=== PATIENT | female | born 1990 | race Caucasian/White ===

== ENCOUNTER 2021-12-30 09:05 | Inpatient (IN) ==
[2021-12-30] MEDS ORDERED: OXYTOCIN 30 UNITS/500 ML BAG IV PRN ×3 (09:34→14:20)
[2021-12-30] MEDS ORDERED: LIDOCAINE 1% LOCAL 20 ML VIAL INFIL PRN (09:34)
[2021-12-30] MEDS ORDERED: LACTATED RINGER'S 1,000 ML IV PRN (09:34)
--- NOTE | 2021-12-30 09:39 | History & Physical Report ---
Date of Service December 30, 2021 Assessment & Plan (1) PROM (premature rupture of membranes): Plan: Patient is a 31 yo at 38+5 WGA presenting to labor and delivery d/t PROM. Blood type: O+, GBS neg, rubella immune Plan to monitor for timeable and regular contraction pattern to develop Will start oxytocin later if necessary Proceed with labor and vaginal delivery History of Present Illness Chief Complaint: PROM at 8am. Primary Care Provider: Bonifacio John Patient is a 31 yo female currently at 38+5WGA with an MIKI 01/08/2022 as determined by LMP who is here d/t her water breaking at 8 AM this morning. She recently underwent ECV on 12/26/2021 which was successful. Baby is still head down confirmed by US. Her has been uncomplicated Sporadic, non timeable contractions described as a strong cramp; movement present; positive fluid loss; denies bloody show External FHT and external uterine monitors used; category 1 tracing; normal FHT variability Had regular appointments with OB in [place] and here. Labs: Blood type: O+ Antibody screen: neg Hgb: 13.5 (12/26/2021) Hct: 41.5 (12/26/2021) WBC: 8.18 (12/26/2021) Plt: 370 (12/26/2021) Rubella: immune VDRL/RPR: neg Gonorrhea: neg Chlamydia: neg HIV: neg HbSAg: neg GBS: neg per patient Allergies Allergy/AdvReac Type Severity Reaction Status Date / Time No Known Allergies Allergy Verified 12/26/21 11:42 Home Medications Medication Instructions Recorded Confirmed Type escitalopram oxalate 10 mg tablet 10 mg PO DAILY 11/05/18 12/26/21 History (Lexapro) prenat.vits,sheela,wsv-lilw-jvbpy 1 tab PO DAILY 12/11/21 12/26/21 History Patient History Medical History (Updated 12/30/21 @ 10:12 by Fátima Hadley DO) Depression with anxiety Hypothyroid no longer on medication Surgical History S/P wisdom tooth extraction Family History Father Asthma Hypertension Mother Hypertension Hypothyroidism Depression Hypercholesteremia Grandfather (Paternal) Hypertension Hypercholesteremia Grandmother (Maternal) Depression Hypercholesteremia COPD (chronic obstructive pulmonary disease) Grandfather (Maternal) Alzheimer disease Grandmother (Paternal) Colorectal cancer Heart disease Denies family history of Ovarian cancer Breast cancer Social History Smoking Status: Never smoker Hx Alcohol Use: Yes Alcohol Intake Frequency Comment: 2-3 DAYS A WEEK Hx Substance Use: No Preferred Language: Azeri Churn Tender Required: No Beliefs That Will Affect Care: None marital status: marital status details: Gee Caruso (30) [phone] Current Living Situation: Spouse and Family Current Living Situation Comment: lives with spouse, son, dogs, bird current occupational status: employed current occupation: teacher [employer] Feels Safe at Home: No Is there a partner from a previous relationship who is making you feel unsafe now?: No Review of Systems Denies fever, chills, sweats. Denies SOB, difficulty breathing, chest pain, palpitations, and chest pressure. Denies breast pain. Denies dysuria. Denies headache or changes in vision. Physical Exam Physical Exam: General: Alert and oriented. No acute distress CV: Regular rate and rhythm. No murmurs. Respiratory: CTA bilaterally. No rhonchi, wheezes, or crackles. No increased work of breathing. Abdomen: Gravid; Soft, nontender upon palpation Pelvic: Dilated 3 cm; Effacement 75%; Station -[address] Douglass's exam Lower extremities: No LE edema. No deep calf pain. Terese's negative bilaterally. Supervising Physician Co-Signing Physician Notes Resident Physician Supervision Note: I was present with Dr. Hadley during the history and exam. I discussed the case with the resident and agree with the findings and plan as documented in the note. Any exceptions or clarifications are listed here: 31yo at term with prom. prior in [place]. transfer of care here in 3rd trimester. rh pos, ri, gbs neg. no labor pattern. discussed if none develops will need pitocin. fhts categ 1. couple agreeable to plan. cephalic by bedside u/s. Documented By: Betsy Douglass MD, FACOG Resident Activity Tracking Resident Involvement: Resident Care Provided Care Provided: OB Delivery
[2021-12-30 09:54] LABS: Hematocrit (blood only) 41.9 % (34.1-44.9); Mean Corpuscular Hemoglobin 28.6 pg (25.0-34.0); Mean Corpuscular Hgb Conc 33.4 g/dL (32.0-36.0); Mean Corpuscular Volume 85.5 fL (80.0-100.0); Platelet Count 368 K/uL (130-400); RDW Coefficient of Variation 15.5 % (11.5-14.5); RDW Standard Deviation 47.5 fL (36.4-46.3); White Blood Count 9.93 K/ul (4.8-10.8)
[2021-12-30] MEDS ORDERED: FLUARIX QUADRIVALENT 0.5 ML SYR IM ONE (10:33)
[2021-12-30 11:50] LABS: Albumin Globulin Ratio 1.2 (0.9-2); Albumin Level 3.7 gm/dl (3.4-5.0); BUN Creatinine Ratio 13.7 (10-20); Bilirubin,Total 0.3 mg/dl (0.2-1.0); Calcium 9.3 mg/dl (8.5-10.1); Creatinine Clr Calc Pharmacy 149.3 ml/min; Est GFR (African American) 127.2 ml/min; Est GFR (Non-African American) 109.7 ml/min; Globulin 3.1 gm/dl (2.5-4.0); Potassium 3.8 mmol/L (3.5-5.1); Total Protein 6.8 gm/dl (6.0-8.3)
[2021-12-30] MEDS ORDERED: ePHEDrine sulfate 50 MG/ML AMP ONE (12:43)
[2021-12-30] MEDS ORDERED: fentaNYL citrate 100 MCG/2 ML VIAL ONE (12:43)
[2021-12-30] MEDS ORDERED: SODIUM CHLORIDE 0.9% INJ 10 ML VIAL ONE (12:43)
[2021-12-30] MEDS ORDERED: LIDOCAINE 2%/EPINEPHRINE 1:200,000 20 ML SDV ONE (12:44)
[2021-12-30] MEDS ORDERED: fentaNYL 2MCG/ML ROPIVACAINE 1.25MG/ML 100 ML BAG EPI ONE (12:44)
[2021-12-30] MEDS ORDERED: BUPIVACAINE 0.25% 30 ML VIAL ONE (12:44)
--- NOTE | 2021-12-30 12:56 | Anesthesiology Consultation ---
Date of Service December 30, 2021 Assessment & Plan (1) Encounter for pre-operative examination: Chart Review Chart Review: Acceptable Risk for Labor Epidural History Height/Weight Height: 5 ft 9 in Weight: 112.491 kg Allergies Allergy/AdvReac Type Severity Reaction Status Date / Time No Known Allergies Allergy Verified 12/30/21 10:34 Medications Home Medications Medication Instructions Recorded Confirmed Last Taken escitalopram oxalate 10 mg tablet 10 mg PO DAILY 11/05/18 12/30/21 12/29/21 08:00 (Lexapro) prenat.vits,sheela,gui-arsd-lilyl 1 tab PO DAILY 12/11/21 12/30/21 12/29/21 08:00 Active Medications Generic Name Dose Route Start Last Admin Trade Name Freq PRN Reason Stop Dose Admin Lactated Ringer's 1,000 mls @ 125 mls/hr 12/30/21 09:34 12/30/21 12:39 Lr IV 01/01/22 09:33 999 mls/hr .Q8H PRN Administration L&D Protocol Protocol Past Medical History Medical History Depression with anxiety Hypothyroid no longer on medication Past Family History Family History Father Asthma Hypertension Mother Hypertension Hypothyroidism Depression Hypercholesteremia Grandfather (Paternal) Hypertension Hypercholesteremia Grandmother (Maternal) Depression Hypercholesteremia COPD (chronic obstructive pulmonary disease) Grandfather (Maternal) Alzheimer disease Grandmother (Paternal) Colorectal cancer Heart disease Denies family history of Ovarian cancer Breast cancer Past Surgical History Surgical History S/P wisdom tooth extraction Social History Smoking Status: Never smoker Hx Alcohol Use: No Hx Substance Use: No substance use type: does not use Physical Exam Vital Signs Last Vital Signs Temp 37.1 C 12/30/21 12:09 Pulse 84 12/30/21 12:53 Resp 20 12/30/21 12:09 BP 131/84 12/30/21 12:53 Testing Laboratory Results 12/30/21 09:41 12/30/21 11:13
[2021-12-30] MEDS ORDERED: NALOXONE HCL 1 MG in SODIUM CHLORIDE 0.9% 1000ML 1,000 ML IV PRN (13:21)
[2021-12-30] MEDS ORDERED: NALOXONE HCL 0.4 MG/1 ML VIAL/CARP IV PRN (13:21)
[2021-12-30] MEDS ORDERED: fentaNYL 2MCG/ML ROPIVACAINE 1.25MG/ML 100 ML BAG EPI PRN (13:21)
[2021-12-30] MEDS ORDERED: ONDANSETRON INJ 2 MG/ML 2 ML VIAL IV PRN (13:21)
[2021-12-30] MEDS ORDERED: ePHEDrine sulfate 50 MG/ML AMP IV PRN (13:21)
--- NOTE | 2021-12-30 14:12 | Delivery Summary ---
Vaginal Delivery Summary Date of Service December 30, 2021 Vaginal Delivery Summary and 2nd Degree LAC The patient dilated to complete and pushed to deliver a viable female Apgars 8 and 9 via over small 2nd degree perineal laceration. Mouth and nose bulb suctioned at perineum. Loose nuchal x 1 reduced at perineum. Shoulders and body delivered with ease. was vigorous and crying at . Cord clamped at 30 seconds of life and to maternal abdomen where the cord was then doubly clamped and cut. Placenta delivered spontaneously and intact, three-vessel cord. Hemostasis achieved with dilute pitocin and uterine massage and drainage of the bladder for approximately 250 cc under sterile conditions. Cervix and sulci intact. Laceration repaired with 3-0 vicryl in usual fashion. Left labia skin tag cut at base per pt wishes. No bleeding at that site. EBL 300 cc. Mother and baby stable in recovery. [facility] [place] Charge Delivery Type Details: and 2nd Degree LAC
[2021-12-30] MEDS ORDERED: DIPHTHERIA/TETANUS/PERTUSSIS 0.5 ML SYR/VIAL IM ONE (14:20)
[2021-12-30] MEDS ORDERED: HYDROCORTISONE ACETATE 25 MG SUPP PR PRN (14:20)
[2021-12-30] MEDS ORDERED: BENZOCAINE 20% AER SPR 82.5 GM CAN EXT PRN (14:20)
[2021-12-30] MEDS ORDERED: oxyCODONE/ACETAMINOPHEN 5mg/325mg TAB PO PRN (14:20)
[2021-12-30] MEDS ORDERED: OXYTOCIN 20 UNITS in LACTATED RINGER'S 1,000 ML IV SCH (14:30)
--- NOTE | 2021-12-30 17:33 | Anesthesia Procedure Note ---
Date of Service December 30, 2021 Anesthesia Post Epidural Note Vital Signs Vital Signs: Temp Pulse Resp BP Pulse Ox 37.0 C 107 H 20 141/73 H 92 12/30/21 14:00 12/30/21 16:29 12/30/21 15:30 12/30/21 16:29 12/30/21 13:45 Notes Mental Status: alert / awake / arousable and participated in evaluation Nausea / Vomiting: adequately controlled Pain: adequately controlled Airway Patency, RR, SpO2: stable & adequate BP & HR: stable & adequate Hydration State: stable & adequate Neuraxial Anesthesia: was administered and sensory block is resolving Anesthetic Complications: no major complications apparent Epidural: Removed without complications and With tip intact
[2021-12-30] MEDS: ACETAMINOPHEN 325 MG TAB PO PRN (18:17)
[2021-12-30] MEDS: DOCUSATE SODIUM 100 MG CAP PO SCH (20:31)
[2021-12-30] MEDS: IBUPROFEN 600 MG TAB PO PRN (20:31)
[2021-12-31] MEDS: ACETAMINOPHEN 325 MG TAB PO PRN (05:17)
--- NOTE | 2021-12-31 06:37 | Obstetrical Progress Note ---
Date of Service <Fátima ShafferKaren Hadley DO - Last Filed: 12/31/21 07:15> December 31, 2021 Assessment & Plan <Fátima Douglas DO Leonie - Last Filed: 12/31/21 07:15> (1) care following vaginal delivery: Patient is PPD 1 s/p and doing well. - Eating well, voiding well, ambulating well - Vitals reviewed and within normal limits - Pain well controlled with analgesics - OOB, ambulation, diet progression as tolerated - Blood type: O+, GBS neg, rubella immune - Plan to discharge today or tomorrow pending pt- medical stable for d/c today - After discharge, 6 week follow up with Dr. Douglass <Betsy Douglass MD, FACOG - Last Filed: 12/31/21 08:03> (1) care following vaginal delivery: Day #:: 1 Subjective <Fátima Douglas DO Leonie - Last Filed: 12/31/21 07:15> Patient is a 31 yo female who is now PPD #1 following spontaneous vaginal delivery at 38+5 weeks. Reports feeling well this morning. She endorses a bdominal cramping with breast feeding and 3/10 pain well managed on analgesics. Voiding without issue. Tolerating regular meals overnight and able to ambulate some. She has passed gas but no bowel movements. Persistent lochia with some improvement this morning. Currently breast feeding. Review of Systems Denies fever, chills, sweats. Denies SOB, difficulty breathing, chest pain, palpitations, and chest pressure. Denies breast pain. Denies dysuria. Denies headache or changes in vision. Physical Exam <Fátima Douglas DO Leonie - Last Filed: 12/31/21 07:15> General: Alert and oriented. No acute distress. CV: Regular rate and rhythm. No murmurs. Respiratory: CTA bilaterally. No rhonchi, wheezes, or crackles. No increased work of breathing. Abdomen: Positive bowel sounds. Soft, nontender, non distended. Uterus: Fundus firm and palpable 3 cm below the umbilicus. Lower extremities: No LE edema. No deep calf pain. Terese's negative bilaterally. Results & Data ([facility]) <Fátimasal Hadley DO - Last Filed: 12/31/21 07:15> Vital Signs (Past 12 Hours) Vital Signs Temp Pulse Resp BP 12/31/21 05:00 36.9 C 82 18 124/80 12/31/21 00:20 36.8 C 91 H 18 121/76 12/30/21 20:20 37.1 C 81 18 133/85 <Betsy Douglass MD, FACOG - Last Filed: 12/31/21 08:03> Co-Signing Physician Notes Resident Physician Supervision Note: I was present with Dr. Hadley during the history and exam. I discussed the case with the resident and agree with the findings and plan as documented in the note. Any exceptions or clarifications are listed here: eating, voiding, ambul without prob, . no pain issues. abd soft ff 2 down nt, ext nt calves. ppd#1 s/p , considering dc, not sure what she wants to do. Instruc tions reveiwed and f/u 6wk pp reviewed. Pt ok for dc. Documented By: Betsy Douglass MD, FACOG Resident Activity Tracking <Fátima Hadley DO - Last Filed: 12/31/21 07:15> Resident Involvement: Resident Care Provided Care Provided: OB Delivery
[2021-12-31] MEDS ORDERED: PRENATAL VITAMIN 1 TAB PO SCH (08:00)
[2021-12-31] MEDS: DOCUSATE SODIUM 100 MG CAP PO SCH (08:05)
[2021-12-31] MEDS ORDERED: ESCITALOPRAM OXALATE 10 MG TAB PO SCH (09:00)
[2021-12-31] MEDS: IBUPROFEN 600 MG TAB PO PRN (17:07)
== END 2021-12-31 18:15 | disposition home or self-care (01) | DRG 807 ==
LOC: OPB 09:05 → 4S1 09:08 → MERGE 09:34 → 4E2 16:56
DX: O70.1 Second degree perineal laceration during delivery; Z37.0 Single live birth; Z3A.39 39 weeks gestation of pregnancy

== ENCOUNTER 2024-10-23 01:23 | Inpatient (IN) ==
--- NOTE | 2024-10-23 04:06 | Ultrasound Report ---
EXAM: US OB limited CLINICAL HISTORY: Suspected IUFD. TECHNIQUE: Multiple ultrasound OB images were obtained through transabdominal approach. The vascular flow was evaluated and shows adequate color flow. COMPARISON: None. FINDINGS: Presentation: Cephalic Gestational Age: 36 weeks and 4 days Amniotic Fluid: Scanty; Amniotic Fluid Index (LATOYA) measured at 5.7 cm, indicating oligohydramnios Movements: No movements observed during the examination Cardiac Activity: No definite cardiac activity identified IMPRESSION: 1. Ultrasound findings are consistent with intrauterine demise at 36 weeks and 4 days gestation. 2. The fetus is in cephalic presentation with associated oligohydramnios. DISCLAIMER: anomalies may be present but not detected. Chromosomal abnormalities can not be ruled out with certainty, even with the normal findings. Electronically signed by Hiro Mcfadden 10-23-2024 04:06 AM
[2024-10-23] MEDS ORDERED: OXYTOCIN 30 UNITS/NSS 30 UNITS/500 ML BAG IV PRN ×2 (05:18→20:50)
[2024-10-23] MEDS ORDERED: LIDOCAINE 1% LOCAL 20 ML VIAL INFIL PRN (05:18)
--- NOTE | 2024-10-23 05:20 | History & Physical Report ---
Date of Service October 23, 2024 Assessment & Plan (1) IUFD at 20 weeks or more of gestation: Plan: 34 yo at 36 4/7 wga dx with IUFD -Condolences given. Reviewed most common causes however often times is unclear cause, not anything she caused -reviewed maternal and workup that is offered/recommended, accepts kb with admit labs but would like to review/consider these further before making decision -Had recent growth us last week. Reviewed next steps w/ induction, timing of induction, etc. After discussion w/ , she would like to proceed. Will start with pitocin History of Present Illness Chief Complaint: decreased fm, iufd Primary Care Provider: VICENTA Haro 34 yo at 36 4/7 wga presented to evaluation due to decreased fm. Noted less fm during day yesterday but had almost met fmc in the afternoon she thought. Took a nap and when woke up, noted that she had still not felt usual movement so presented for evaluation. On arrival to L&D, denies ctx, LOF, VB. RN x 2 tried to auscultate fetus but could not, bsus suspicious for iufd and formal us confirmed findings unfortunately. 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 current denies hx stis Allergies Allergy/AdvReac Type Severity Reaction Status Date / Time No Known Allergies Allergy Verified 10/20/24 15:57 Home Medications Medication Instructions Recorded Confirmed Type lamotrigine 25 mg tablet 50 mg PO DAILY 03/18/24 10/23/24 History folic acid PO 04/25/24 10/20/24 History 21-iron fu-folic acid 1 tab PO DAILY 04/25/24 10/23/24 History [ Complete] escitalopram oxalate 10 mg tablet 10 mg PO DAILY 07/28/24 10/23/24 History Patient History Medical History Varicella vaccination Fibromyalgia Depression with anxiety Hypothyroid Surgical History S/P wisdom tooth extraction Family History Father Asthma Hypertension Mother Hypertension Hypothyroidism Depression Hypercholesteremia Grandfather (Paternal) Hypertension Hypercholesteremia Grandmother (Maternal) Depression Hypercholesteremia COPD (chronic obstructive pulmonary disease) Grandfather (Maternal) Alzheimer disease Grandmother (Paternal) Colorectal cancer Heart disease Denies family history of Ovarian cancer Breast cancer Social History (Updated 04/25/24 @ 08:55 by Willow Silverio) Smoking Status: Never smoker Do You Dip or Chew Tobacco: No; Hx Alcohol Use: No Hx Substance Use: No Preferred Language: Turkish Communication Ability: Effective Visual Impairment: No Limitations Hearing Ability: Normal Orthotist Required: No Beliefs That Will Affect Care: None marital status: marital status details: Gee Caruso (32) [phone] Current Living Situation: Family Current Living Situation Comment: lives with and 2 children, dogs current occupational status: other 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 Other Information That Helps Us Care for You: No Feels Safe at Home: Yes Safety Concerns: Feels Safe At This Time Diet: regular Dental Care, Regularly: Yes Physical Activity Frequency: Does not Exercise Seatbelt Use: always Do you think of yourself as: straight/heterosexual Gender Identity: Female Assistive Devices: Glasses Physical Exam Genitourinary: OB Exam Abdomen: + vertex Manual OB Exam: + cervical dilation 2 cm, + cervical effacement 50% and + station -2 Results & Data Vital Signs (Past 12 Hours) Vital Signs Pulse Pulse Ox 10/23/24 02:39 100 H 98 10/23/24 02:34 91 H 97 10/23/24 02:29 84 97 10/23/24 02:24 96 H 96 10/23/24 02:19 89 96 10/23/24 02:14 87 97 10/23/24 02:09 105 H 97 10/23/24 02:04 85 97 10/23/24 01:59 76 98 10/23/24 01:54 87 97 10/23/24 01:49 92 H 97 10/23/24 01:44 91 H 99 10/23/24 01:39 99 H 99 10/23/24 01:34 94 H 98 Laboratory Results OB Labs: Blood Type O Positive 05/02/24 Antibody Screen NEGATIVE 05/02/24 Hgb 12.8 g/dl (12.0-16.0) 08/25/24 Hct 40.0 % (37.0-47.0) 08/25/24 MCV 87.7 fL (80.0-100.0) 05/02/24 Plt Count 324 K/uL (130-400) 05/02/24 Rubella IgG Antibody Equivocal (Immune) L 05/02/24 Treponema pallidum Ab Negative (Negative) 08/25/24 Hep Bs Antigen Negative (Negative) 05/02/24 Hepatitis C Antibody Negative (Negative) 05/02/24 HIV 1&2 Ab/P24 Ag 4thGn Negative (Negative) 05/02/24 Glucose 1 Hr 50 gm 133 mg/dl (70-130) H 05/31/24 OB Optional Labs: Chlamydia trachomatis RNA Not Detected (NotDetected) 05/02/24 Neisseria gonorrhoeae RNA Not Detected (NotDetected) 05/02/24 Thyroid Stimulating Hormone (TSH) 0.636 uIu/ml (0.300-4.500) 08/25/24 Diagnostic Findings 10/23 US: FINDINGS: Presentation: Cephalic Gestational Age: 36 weeks and 4 days Amniotic Fluid: Scanty; Amniotic Fluid Index (LATOYA) measured at 5.7 cm, indicating oligohydramnios Movements: No movements observed during the examination Cardiac Activity: No definite cardiac activity identified IMPRESSION: 1. Ultrasound findings are consistent with intrauterine demise at 36 weeks and 4 days gestation. 2. The fetus is in cephalic presentation with associated oligohydramnios. 10/20 EFW 68%, AC 76%, DVP wnl, posterior plac Coding Level of Care Code None Diagnoses IUFD at 20 weeks or more of gestation O36.4XX0
[2024-10-23] MEDS: LACTATED RINGER'S 1,000 ML IV PRN (06:00)
[2024-10-23] MEDS: OXYTOCIN 30 UNITS/NSS 30 UNITS/500 ML BAG IV PRN (06:15)
[2024-10-23 06:32] LABS: Hematocrit (blood only) 39.4 % (37.0-47.0); Hemoglobin 12.6 g/dl (12.0-16.0); Mean Corpuscular Hemoglobin 28.0 pg (25.0-34.0); Mean Corpuscular Volume 87.6 fL (80.0-100.0); Platelet Count 277 K/uL (130-400); RDW Standard Deviation 47.8 fL (36.4-46.3); Red Blood Count 4.50 M/uL (4.20-5.40); White Blood Count 8.15 K/ul (4.8-10.8)
[2024-10-23 06:56] LABS: Alanine Aminotransferase 7.0 U/L (7-52); Albumin Globulin Ratio 1.4 (0.9-2); Alkaline Phosphatase 116.0 U/L (34-104); Anion Gap 11.0 (3-11); Bilirubin,Total 0.2 mg/dl (0.2-1.0); Blood Urea Nitrogen 7.0 mg/dl (6-23); Calcium 8.6 mg/dl (8.6-10.3); Carbon Dioxide 18.0 mmol/L (21-32); Chloride 108.0 mmol/L (98-107); Creatinine Clr Calc Pharmacy 200.4 ml/min; Globulin 2.4 gm/dl (2.5-4.0); Glucose 77.0 mg/dl (70-99(Fasting)); Potassium 3.7 mmol/L (3.5-5.1); Sodium 137.0 mmol/L (136-145); Total Protein 5.8 gm/dl (6.0-8.3)
[2024-10-23] MEDS ORDERED: ONDANSETRON INJ 2 MG/ML 2 ML VIAL IV PRN (13:52)
[2024-10-23] MEDS ORDERED: METOCLOPRAMIDE HCL 20 MG in SODIUM CHLORIDE 0.9% 50 ML IV PRN (13:52)
[2024-10-23] MEDS ORDERED: SODIUM CHLORIDE 0.9% PF INJ 10 ML VIAL EPI PRN (13:52)
[2024-10-23] MEDS ORDERED: NALOXONE HCL 1 MG in SODIUM CHLORIDE 0.9% 1,000 ML IV PRN (13:52)
[2024-10-23] MEDS ORDERED: NALOXONE HCL 0.4 MG/1 ML VIAL/CARP IV PRN (13:52)
[2024-10-23] MEDS ORDERED: NALBUPHINE HCL INJ 10 MG/ML AMP IV PRN (13:52)
[2024-10-23] MEDS ORDERED: fentANYL 2 MCG/ML BUPIVacaine 0.125%-NSS 100ML BAG EPI PRN (13:52)
[2024-10-23] MEDS ORDERED: BUPIVACAINE 0.25% PF 30 ML VIAL EPI PRN (13:52)
[2024-10-23] MEDS ORDERED: diphenhydrAMINE 50 MG/ML VIAL IV PRN (13:52)
[2024-10-23] MEDS ORDERED: LIDOCAINE 2% MPF LOCAL 5 ML VIAL EPI PRN (13:52)
[2024-10-23] MEDS ORDERED: ROPIVACAINE 0.5% PF 5 MG/ML 20 ML VIAL EPI PRN (13:52)
--- NOTE | 2024-10-23 13:57 | Anesthesiology Consultation ---
Date of Service October 23, 2024 Assessment & Plan (1) IUFD at 20 weeks or more of gestation: Chart Review Chart Review: Acceptable Risk for Labor Epidural Consults Requested none ASA ASA2 Proposed Anesthesia Anesthesia Type: Labor Epidural Risk / Benefits Reviewed With: PT / POA / Parent / Guardian, Accepts Plan and Informed Consent Obtained History Height/Weight Height: 5 ft 10 in Weight: 117.48 kg Allergies Allergy/AdvReac Type Severity Reaction Status Date / Time No Known Allergies Allergy Verified 10/20/24 15:57 Medications Home Medications Medication Instructions Recorded Confirmed Last Taken lamotrigine 25 mg tablet 50 mg PO DAILY 03/18/24 10/23/24 Unknown 21-iron fu-folic acid 1 tab PO DAILY 04/25/24 10/23/24 1 Day Ago [ Complete] ~10/22/24 escitalopram oxalate 10 mg tablet 10 mg PO DAILY 07/28/24 10/23/24 1 Day Ago ~10/22/24 Active Medications Generic Name Dose Route Start Last Admin Trade Name Freq PRN Reason Stop Dose Admin Oxytocin 30 units in 500 mls @ 20 mls/hr 10/23/24 05:18 10/23/24 12:00 Pitocin 30 Units/Nss IV 10/25/24 05:17 1.2 units/hr .Q24H PRN 20 mls/hr Labor Induction/Augmentation Titration Protocol 1.2 UNITS/HR Lactated Ringer's 1,000 mls @ 125 mls/hr 10/23/24 05:18 10/23/24 13:45 Lr IV 10/25/24 05:17 Infused .Q8H PRN Infusion L&D Protocol Protocol NPO Date Last Intake of Fluids: 10/23/24 Time Last Intake of Fluids: 13:30 Date Last Intake of Solids: 10/23/24 Time Last Intake of Solids: 13:00 Past Medical History Medical History Varicella vaccination Fibromyalgia Depression with anxiety Hypothyroid no longer on medication Exercise / Class Metabolic Activity II 4-5 Yardwork/Stairs/Walk up hill Past Family History Family History Father Asthma Hypertension Mother Hypertension Hypothyroidism Depression Hypercholesteremia Grandfather (Paternal) Hypertension Hypercholesteremia Grandmother (Maternal) Depression Hypercholesteremia COPD (chronic obstructive pulmonary disease) Grandfather (Maternal) Alzheimer disease Grandmother (Paternal) Colorectal cancer Heart disease Denies family history of Ovarian cancer Breast cancer Past Surgical History Surgical History S/P wisdom tooth extraction Past Anesthesia History No Hx of Anesthesia Complications and No Family Hx of Anesthesia Complications History of PONV No Hx of PONV and No Hx of Motion Sickness Social History Smoking Status: Never smoker Do You Dip or Chew Tobacco: No Hx Alcohol Use: No Alcohol type: beer and hard liquor Hx Substance Use: No substance use type: does not use Physical Exam Vital Signs Last Vital Signs Temp 36.7 C 10/23/24 07:25 Pulse 75 10/23/24 12:56 Resp 20 10/23/24 07:25 BP 146/82 H 10/23/24 12:56 Pulse Ox 98 10/23/24 02:39 Constitutional + obese ENMT Mouth: no TMJ abnormality Thyromental Distance: > or= 3.5 Finger Breadths Mallampati Class: II Neck normal visual inspection and trachea midline; neck extension not limited Respiratory normal respiratory effort Auscultation: lungs clear to auscultation bilaterally Cardiovascular Rate/Rhythm: regular rate and regular rhythm Heart Sounds: no murmur Musculoskeletal Spine: normal cervical ROM Extremities: full ROM of extremities Neurologic moves all extremities Psychiatric Orientation: alert and oriented x 3 Testing Laboratory Results 10/23/24 05:50 10/23/24 05:50 Blood Type O Positive 10/23/24 05:45 Antibody Screen NEGATIVE 10/23/24 05:45
[2024-10-23] MEDS: LIDOCAINE 2%/EPINEPHRINE 1:200,000 20 ML PF ONE (14:38)
[2024-10-23] MEDS: BUPIVACAINE 0.25% PF 30 ML VIAL ONE (14:48)
[2024-10-23] MEDS: SODIUM CHLORIDE 0.9% PF INJ 10 ML VIAL ONE (14:49)
[2024-10-23] MEDS: fentANYL 2 MCG/ML BUPIVacaine 0.125%-NSS 100ML BAG ONE (14:52)
--- NOTE | 2024-10-23 16:10 | Labor Progress Brief Note ---
Date of Service October 23, 2024 Subjective now comfortable w/ epidural Assessment & Plan (1) IUFD at 20 weeks or more of gestation: Plan: 34 yo w/ IUFD at 36 4/7 wga VSS pit at 20, now comfortable w/ epidural so accepts arom, tolerated well for clear fluid Admission and Anticipated Discharge Date Admission Date: October 23, 2024 Physical Exam Genitourinary: Manual OB Exam: + cervical dilation 3 cm, + cervical effacement 50%, + station -2 and + amniotic fluid (arom clear) OB Exam Monitor Tracing: + external uterine monitor used (q3-4) Results & Data Vital Signs (Past 12 Hours) Vital Signs Temp Pulse Resp BP Pulse Ox 10/23/24 16:03 82 96 10/23/24 15:58 77 137/82 96 10/23/24 15:53 73 96 10/23/24 15:48 70 95 10/23/24 15:45 74 94 10/23/24 15:44 69 133/75 10/23/24 15:43 68 96 10/23/24 15:38 75 96 10/23/24 15:33 72 97 10/23/24 15:28 74 96 10/23/24 15:26 70 94 10/23/24 15:23 73 95 10/23/24 15:22 76 128/74 10/23/24 15:20 73 94 10/23/24 15:18 74 128/74 95 10/23/24 15:13 81 95 10/23/24 15:12 77 132/76 10/23/24 15:08 74 136/79 95 10/23/24 15:04 71 94 10/23/24 15:03 95 10/23/24 15:03 76 10/23/24 15:03 78 136/78 10/23/24 14:58 96 10/23/24 14:58 83 10/23/24 14:58 80 132/73 10/23/24 14:56 77 94 10/23/24 14:53 90 95 10/23/24 14:51 76 114/62 10/23/24 14:49 77 120/64 10/23/24 14:48 83 96 10/23/24 14:47 87 111/60 10/23/24 14:45 81 122/65 10/23/24 14:43 97 10/23/24 14:43 91 H 10/23/24 14:43 86 117/64 10/23/24 14:41 88 126/69 10/23/24 14:38 94 H 96 10/23/24 14:33 80 97 10/23/24 14:31 86 111/64 10/23/24 14:28 100 H 96 10/23/24 14:24 86 94 10/23/24 14:23 87 95 10/23/24 14:18 88 96 10/23/24 14:17 83 91 10/23/24 14:13 90 97 10/23/24 14:08 73 96 10/23/24 14:03 101 H 97 10/23/24 13:58 86 97 10/23/24 12:56 75 146/82 H 10/23/24 12:03 76 133/83 10/23/24 11:03 79 119/61 10/23/24 10:02 80 129/72 10/23/24 09:11 74 136/78 10/23/24 08:21 75 136/74 10/23/24 07:25 98.1 F 92 H 20 138/85 10/23/24 06:23 74 139/88 10/23/24 06:18 73 169/103 H 10/23/24 05:30 99.1 F 16 Coding Level of Care Code None Diagnoses IUFD at 20 weeks or more of gestation O36.4XX0
--- NOTE | 2024-10-23 19:14 | Labor Progress Brief Note ---
Date of Service October 23, 2024 Subjective feeling ctx more Assessment & Plan (1) IUFD at 20 weeks or more of gestation: Plan: 34 yo w/ IUFD at 36 4/7 wga VSS pit at 24, progress noted. Continue induction still not sure about whether or not will want maternal or testing, wants to see if anything obvious for cause after first to decide epidural in place but getting uncomfortable again, rn will check w/ anesthesia Admission and Anticipated Discharge Date Admission Date: October 23, 2024 Physical Exam Genitourinary: Manual OB Exam: + cervical dilation 5 cm, + cervical effacement 70% and + station -1 OB Exam Monitor Tracing: + external uterine monitor used (q3) Results & Data Vital Signs (Past 12 Hours) Vital Signs Temp Pulse Resp BP Pulse Ox 10/23/24 19:08 89 97 10/23/24 19:03 82 95 10/23/24 18:58 71 97 10/23/24 18:57 70 142/82 H 10/23/24 18:53 76 95 10/23/24 18:50 72 94 10/23/24 18:48 69 95 10/23/24 18:43 78 96 10/23/24 18:41 91 H 93 10/23/24 18:38 101 H 97 10/23/24 18:33 73 97 10/23/24 18:28 81 95 10/23/24 18:27 70 125/64 10/23/24 18:23 75 96 10/23/24 18:18 72 97 10/23/24 18:13 74 115/58 L 97 10/23/24 18:08 68 96 10/23/24 18:03 69 97 10/23/24 17:58 74 151/81 H 97 10/23/24 17:53 68 97 10/23/24 17:48 69 98 10/23/24 17:43 96 10/23/24 17:43 69 10/23/24 17:43 68 154/90 H 10/23/24 17:38 67 95 10/23/24 17:33 70 96 10/23/24 17:28 74 150/87 H 96 10/23/24 17:23 70 96 10/23/24 17:18 71 96 10/23/24 17:13 78 94 10/23/24 17:12 65 145/91 H 10/23/24 17:08 76 96 10/23/24 17:03 69 97 10/23/24 16:58 71 95 10/23/24 16:57 66 136/83 10/23/24 16:54 70 94 10/23/24 16:53 74 95 10/23/24 16:48 79 96 10/23/24 16:43 66 95 10/23/24 16:42 68 138/81 10/23/24 16:38 71 95 10/23/24 16:33 76 96 10/23/24 16:28 68 135/75 95 10/23/24 16:27 68 94 10/23/24 16:23 89 96 10/23/24 16:22 68 94 10/23/24 16:18 73 95 10/23/24 16:17 72 94 10/23/24 16:13 70 95 10/23/24 16:12 65 136/79 10/23/24 16:10 73 94 10/23/24 16:08 71 95 10/23/24 16:03 82 96 10/23/24 15:58 77 137/82 96 10/23/24 15:53 73 96 10/23/24 15:48 70 95 10/23/24 15:45 74 94 10/23/24 15:44 69 133/75 10/23/24 15:43 68 96 10/23/24 15:38 75 96 10/23/24 15:33 72 97 10/23/24 15:28 74 96 10/23/24 15:26 70 94 10/23/24 15:23 73 95 10/23/24 15:22 76 128/74 10/23/24 15:20 73 94 10/23/24 15:18 74 128/74 95 10/23/24 15:13 81 95 10/23/24 15:12 77 132/76 10/23/24 15:08 74 136/79 95 10/23/24 15:04 71 94 10/23/24 15:03 95 10/23/24 15:03 76 10/23/24 15:03 78 136/78 10/23/24 14:58 96 10/23/24 14:58 83 10/23/24 14:58 80 132/73 10/23/24 14:56 77 94 10/23/24 14:53 90 95 10/23/24 14:51 76 114/62 10/23/24 14:49 77 120/64 10/23/24 14:48 83 96 10/23/24 14:47 87 111/60 10/23/24 14:45 81 122/65 10/23/24 14:43 97 10/23/24 14:43 91 H 10/23/24 14:43 86 117/64 10/23/24 14:41 88 126/69 10/23/24 14:38 94 H 96 10/23/24 14:33 80 97 10/23/24 14:31 86 111/64 10/23/24 14:28 100 H 96 10/23/24 14:24 86 94 10/23/24 14:23 87 95 10/23/24 14:18 88 96 10/23/24 14:17 83 91 10/23/24 14:13 90 97 10/23/24 14:08 73 96 10/23/24 14:03 101 H 97 10/23/24 13:58 86 97 10/23/24 12:56 75 146/82 H 10/23/24 12:03 76 133/83 10/23/24 11:03 79 119/61 10/23/24 10:02 80 129/72 10/23/24 09:11 74 136/78 10/23/24 08:21 75 136/74 10/23/24 07:25 98.1 F 92 H 20 138/85 Coding Level of Care Code None Diagnoses IUFD at 20 weeks or more of gestation O36.4XX0
[2024-10-23 19:44] VITALS: O2SAT 94
--- NOTE | 2024-10-23 20:27 | Delivery Summary ---
Vaginal Delivery Summary Date of Service October 23, 2024 Vaginal Delivery Summary [facility] PREOPERATIVE DIAGNOSIS: 1. Single intrauterine at 36 4/7 wga 2. Intrauterine demise POSTOPERATIVE DIAGNOSIS: 1. Single intrauterine at 36 4/7 wga 2. Intrauterine demise 3. Delivered PROCEDURE: 1. Spontaneous vaginal delivery. SURGEON: Racquel Sellers MD ANESTHESIA: Epidural. ESTIMATED BLOOD LOSS: 50 mL FLUIDS: Continuous LR. URINE OUTPUT: None. COMPLICATIONS: None. CONDITION: Stable. INDICATIONS: 34 yo at 36 4/7 wga presented due to decreased movement. heart tones were unable to be found. US confirmed findings of IUFD. FINDINGS: Nonviable female , appears grossly normal, weighing 6lbs 13oz. Nuchal cord x 3 noted at delivery as well as a true knot near the umbilical cord insertion site. Placenta appears grossly normal as well SPECIMEN: Cord blood, placenta OPERATIVE REPORT: The patient progressed to 10 cm, 100% effaced and +2 station, pushed over intact perineum with anesthesia to deliver . Head of d elivered in GOLDEN position. Nuchal cord x 3 was reduced. Body and shoulders were delivered without difficulty. was delivered to maternal abdomen and nursing staff. Cord was clamped and cut. Cord blood was obtained. Placenta delivered spontaneously intact with 3-vessel cord. IV oxytocin and fundal massage were given for excellent hemostasis. Vagina, cervix, perineum, and placenta were inspected. Hemostatic periurethral abrasion did not need repaired. Sponge and needle counts correct x2. No sponges were left behind. Mother stable in immediate period. [facility] Vaginal Delivery Charge Vaginal Delivery Codes: 74616 global code for the antepartum, delivery, and post- Delivery Type Details: [facility]
[2024-10-23] MEDS ORDERED: HYDROCORTISONE ACETATE 25 MG SUPP PR PRN (20:50)
[2024-10-23] MEDS ORDERED: ACETAMINOPHEN 325 MG TAB PO PRN (20:50)
[2024-10-23] MEDS: BUPIVACAINE 0.25% PF 30 ML VIAL EPI STA (21:30)
[2024-10-23] MEDS: LIDOCAINE 2%/EPINEPHRINE 1:200,000 20 ML PF EPI STA (21:30)
[2024-10-23] MEDS: SODIUM CHLORIDE 0.9% PF INJ 10 ML VIAL EPI STA (21:30)
[2024-10-23] MEDS: DIPHTHER/TETAN/PERTUS Vaccine (Tdap, Adol/Adult) 0.5mL IM ONE (21:30)
[2024-10-23] MEDS: BENZOCAINE 20% SPRY 85 APPLN/85 GM CAN EXT PRN (21:36)
[2024-10-23] MEDS: DOCUSATE SODIUM 100 MG CAP PO SCH (21:36)
[2024-10-23] MEDS: IBUPROFEN 600 MG TAB PO PRN (21:36)
--- NOTE | 2024-10-24 07:51 | Obstetrical Progress Note ---
Date of Service October 24, 2024 Assessment & Plan (1) IUFD at 20 weeks or more of gestation: Plan: 34 yo s/p last evening for IUFD. Tight true knot noted at time of delivery as well as triple nuchal cord -pp physical milestones wnl -had positive kb but just barely so do not suspect r/t cause. Pt declines further maternal and testing given findings at time of delivery, placenta will be sent to path -will arrange for office f/u in 2-4 wks, she has appt already w/ psych and therapist Admission and Anticipated Discharge Date Admission Date: October 23, 2024 Subjective Able to rest overnight. Pain and vaginal bleeding appropriate,denies f/c, n/v. Mentally ok, feels like has good support system with family, therapist, psychiatrist. Has an appt weds with psychiatrist already actually Results & Data Vital Signs (Past 12 Hours) Vital Signs Temp Pulse Resp BP Pulse Ox 10/24/24 07:41 74 140/90 10/24/24 04:02 98.2 F 18 10/24/24 04:02 71 116/64 10/24/24 00:03 16 10/24/24 00:03 76 122/60 10/23/24 22:25 98.8 F 18 10/23/24 22:25 93 H 145/86 H 10/23/24 22:07 16 10/23/24 21:41 82 144/80 H 10/23/24 21:00 18 10/23/24 20:45 16 10/23/24 20:30 16 10/23/24 20:30 71 150/92 H 10/23/24 20:17 68 158/90 H 10/23/24 20:15 18 10/23/24 20:01 79 178/86 H 10/23/24 20:00 20 10/23/24 19:43 112 H 94 PG Care Time/CCT Total # of Minutes Spent Total Time Spent with Patient: Total time spent is greater than 50% in coordination of care (as documented) at patient's floor/unit and/or counseling patient: Coding Level of Care Code None Diagnoses IUFD at 20 weeks or more of gestation O36.4XX0
--- NOTE | 2024-10-24 08:28 | Communication Note ---
Date of Service: October 24, 2024 I discussed the case with the second ride fare collector weekend anesthesiologist who was concerned that she may have had an inadvertent dural puncture, though the possibility of leakage of fluid during the loss of resistance technique was also considered. As the catheter was already pulled by this morning, I was unable to complete triple prophylaxis through the epidural catheter. The patient is sitting upright and comfortable in her bed with no headache or sense of fullness in her head. I had a lengthy discussion with the patient and her regarding the [facility] anism of dural puncture headache, the natural course, and the potential treatment options should it arise. All questions were answered to her satisfaction. As she is likely to be discharged today, we will provide a business card to our PAT clinic and she is welcome to call us to discuss any concerns or to schedule an outpatient epidural blood patch should the need arise.
[2024-10-24] MEDS ORDERED: lamoTRIgine 25 MG TAB PO SCH ×2 (09:00→21:00)
[2024-10-24] MEDS ORDERED: ESCITALOPRAM OXALATE 10 MG TAB PO SCH ×2 (09:00→21:00)
--- NOTE | 2024-10-24 09:06 | Anesthesia Procedure Note ---
Date of Service October 24, 2024 Anesthesia Post Epidural Note Vital Signs Vital Signs: Temp Pulse Resp BP Pulse Ox 36.8 C 74 18 140/90 94 10/24/24 04:02 10/24/24 07:41 10/24/24 04:02 10/24/24 07:41 10/23/24 19:43 Pain Intensity Back: Pain Intensity: 3 Abdomen: Pain Intensity: 3 Notes Mental Status: alert / awake / arousable Nausea / Vomiting: adequately controlled Pain: adequately controlled Airway Patency, RR, SpO2: stable & adequate BP & HR: stable & adequate Hydration State: stable & adequate Neuraxial Anesthesia: was administered and sensory block is resolving Anesthetic Complications: no major complications apparent and Pt Satisfied with anesthetic care Epidural: Removed without complications and With tip intact Notes: Delayed entry; catheter was removed at 0725 this morning.
[2024-10-24] MEDS: PRENATAL VITAMIN 1 TAB PO SCH (09:59)
[2024-10-24] MEDS: lamoTRIgine 25 MG TAB PO SCH (10:00)
[2024-10-24] MEDS ORDERED: Nursing to Pharmacy Communication SCH (10:00)
[2024-10-24 10:25] VITALS: RESP 20; TEMP 98.1
[2024-10-24 14:20] VITALS: BP 148/70; PULSE 82
== END 2024-10-24 15:30 | disposition home or self-care (01) | DRG 807 ==
LOC: OPB 01:23 → 4S1 01:27